=== PATIENT | female | born 1955 | race Two or more races ===

== ENCOUNTER 2023-08-31 23:43 | Inpatient (IN) | payer MEDICAID ==
[~2023-08-31] VITALS: Ht 154.9 cm; Wt 81.8 kg
[2023-09-01] VITALS (9 sets, daily range): BP systolic 113–115; BP diastolic 54–73; PULSE 77–101; RESP 18–19; TEMP 97.8–98.9; O2SAT 94–96
[2023-09-01] MEDS ORDERED: IPRATROPIUM BROM 0.5 MG/2.5ML INH SOL NEB ONE (00:15)
[2023-09-01] MEDS ORDERED: ALBUTEROL MEDNEB 2.5 mg/3ml NEB NEB ONE (00:15)
[2023-09-01 00:46] LABS: Basophils # (auto) 0.1 10 ^3/uL (0-0.2); Eosinophils # (auto) 0.2 10 ^3/uL (0-0.8); Eosinophils % (auto) 1.4 % (0.0-7.0); Neutrophils # (auto) 9.7 10 ^3/uL (1.6-8.6)
[2023-09-01 00:47] LABS: Basophils % (auto) 0.5 % (0.0-2.0); Hematocrit 37.6 % (36.0-46.0); Hemoglobin 11.8 g/dL (12.2-16.2); Mean Corpuscular Hemoglobin 26.9 pg (28.0-32.0); Mean Corpuscular Hgb Conc. 31.5 g/dL (32.0-36.0); Mean Corpuscular Volume 85.2 fL (80.0-100.0); Monocytes # (auto) 1.1 10 ^3/uL (0-1.3); Monocytes % (auto) 9.5 % (0.0-12.0); Neutrophils % (auto) 80.6 % (37.0-80.0); Red Blood Cells 4.41 10^6/uL (4.0-5.20); Red Cell Distribution Width 18.5 % (11.8-14.3)
[2023-09-01] MEDS ORDERED: MORPHINE SULFATE 4 MG/ML SYR/VIAL IV PRN (01:00)
[2023-09-01] MEDS ORDERED: PROMETHAZINE W/CODEINE 5 ML ORAL SYRUP PO ONE (01:00)
[2023-09-01] MEDS ORDERED: AZITHROMYCIN 500MG/ 250ML 250 ML IV ONE (01:00)
[2023-09-01] MEDS ORDERED: methylPREDNISolone SOD SUCC 125 MG/2 ML VL IV ONE (01:00)
[2023-09-01] MEDS ORDERED: ONDANSETRON HCL 4 MG/2 ML VIAL IV ONE (01:00)
[2023-09-01] MEDS ORDERED: ACETAMINOPHEN 325 MG TAB PO ONE (01:00)
[2023-09-01] MEDS ORDERED: ASPirin 81 mg TAB PO ONE (01:00)
[2023-09-01] MEDS ORDERED: ALBUTEROL SULF 2.5 MG/0.5ML(0.5%) NEB SOLN HHN ONE (01:00)
[2023-09-01] MEDS ORDERED: IPRATROPIUM BROM 0.5 MG/2.5ML INH SOL HHN ONE (01:00)
[2023-09-01] MEDS ORDERED: cefTRIAXone 1GM/50ML D5W 50 ML IV ONE (01:00)
[2023-09-01 01:02] LABS: INR 1.06 (0.9-1.15); Partial Thromboplastin Time 33.3 SEC (24.5-34.5); Prothrombin Time 11.1 sec (9.3-11.8)
[2023-09-01 01:05] LABS: Alanine Aminotransferase 10 U/L (7-40); Albumin 4.3 g/dL (3.2-4.8); Alkaline Phosphatase 83 U/L (46-116); Anion Gap 9 (5-15); Aspartate Aminotransferase 14 U/L (13-40); BUN/Creatinine Ratio 13.6 (10.0-20.0); Bilirubin, Total 0.6 mg/dL (0.2-1.0); Blood Urea Nitrogen 9 mg/dL (9-23); Calcium 8.7 mg/dL (8.7-10.4); Carbon Dioxide 24 mmol/L (20-30); Chloride 109 mmol/L (98-107); Glucose 115 mg/dL (74-106); Magnesium 1.9 mg/dL (1.6-2.6); Potassium 3.1 mmol/L (3.5-5.1); Sodium 142 mmol/L (136-145); Total Protein 7.4 g/dL (5.7-8.2)
[2023-09-01] MEDS ORDERED: ALBUTEROL MEDNEB 2.5 mg/3ml NEB ONE (01:15)
[2023-09-01] MEDS ORDERED: POTASSIUM CHL 20 Meq TABLET PO ONE (04:15)
[2023-09-01 05:29] LABS: COVID19 ANTIGEN SOFIA FIA POSITIVE (NEGATIVE); Rapid Influenza A Negative (Negative); Rapid Influenza B Negative (Negative)
[2023-09-01] MEDS ORDERED: REMDESIVIR PER PHARMACY 0 ML IV SCH (05:45)
[2023-09-01] MEDS ORDERED: ACETAMINOPHEN 500 MG TAB PO PRN (05:45)
[2023-09-01] MEDS ORDERED: DOCUSATE SOD 100 MG CAP PO PRN (09:45)
[2023-09-01] MEDS: ASCORBIC ACID 1,000 MG TAB PO SCH (10:27)
[2023-09-01] MEDS: CHOLECALCIFEROL (VITD3) 2,000 UNIT CAP/TAB PO SCH (10:27)
[2023-09-01] MEDS: ZINC SULFATE 220mg CAP or TAB PO SCH (10:27)
[2023-09-01] MEDS: DexAMETHasone SOD PHOS 10MG/1ML VIAL INJ IV SCH (10:27)
[2023-09-01] MEDS ORDERED: REMDESIVIR 200 MG in NS 210ml LOADING DOSE ADULT IV ONE (12:00)
[2023-09-01] MEDS ORDERED: OMEP20TA PO (12:43)
[2023-09-01] MEDS ORDERED: MONT-8 PO (12:43)
[2023-09-01] MEDS ORDERED: FERR-7 PO (12:44)
[2023-09-01] MEDS: SODIUM CHLORIDE 0.9% 1,000 ML IV SCH ×2 (13:37→17:57)
[2023-09-01] MEDS: ONDANSETRON HCL 4 MG/2 ML VIAL IV PRN ×2 (14:38→21:32)
[2023-09-01] MEDS: ENOXAPARIN SOD 40 MG/0.4 ML SYRINGE SC SCH (14:38)
[2023-09-01] MEDS: MORPHINE SULFATE INJ 2 MG/ml SYRG IV PRN ×2 (14:38→21:30)
[2023-09-01] MEDS: BUDESONIDE (INHALATION) 180 MCG IH IN SCH (22:03)
[2023-09-02] VITALS (7 sets, daily range): BP systolic 118–125; BP diastolic 63–79; PULSE 57–87; RESP 16–20; TEMP 97.8–98.3; O2SAT 95–99
[2023-09-02] MEDS: SODIUM CHLORIDE 0.9% 1,000 ML IV SCH ×3 (02:25→19:05)
[2023-09-02 07:33] LABS: Basophils # (auto) 0 10 ^3/uL (0-0.2); Basophils % (auto) 0.1 % (0.0-2.0); Eosinophils # (auto) 0 10 ^3/uL (0-0.8); Hemoglobin 10.9 g/dL (12.2-16.2); Neutrophils # (auto) 11.9 10 ^3/uL (1.6-8.6); Red Cell Distribution Width 18.4 % (11.8-14.3)
[2023-09-02 07:35] LABS: Lymphocytes % (auto) 7.4 % (10.0-50.0); Mean Corpuscular Volume 84.2 fL (80.0-100.0); Monocytes # (auto) 0.8 10 ^3/uL (0-1.3); Monocytes % (auto) 6.2 % (0.0-12.0); Neutrophils % (auto) 86.3 % (37.0-80.0); Red Blood Cells 4.03 10^6/uL (4.0-5.20); White Blood Cell 13.8 10^3/uL (4.4-10.8)
[2023-09-02] MEDS: BUDESONIDE (INHALATION) 180 MCG IH IN SCH ×2 (07:35→22:40)
[2023-09-02] MEDS: ALBUTEROL SULF HFA 90MCG INH 200DOSE IN PRN ×2 (07:35→22:40)
[2023-09-02 07:48] LABS: Albumin 3.7 g/dL (3.2-4.8); Alkaline Phosphatase 67 U/L (46-116); Calcium 8.8 mg/dL (8.5-10.1); Carbon Dioxide 26 mmol/L (20-30); Chloride 110 mmol/L (98-107)
[2023-09-02 07:49] LABS: Anion Gap 7 (5-15); Aspartate Aminotransferase 13 U/L (13-40); Bilirubin, Total 0.4 mg/dL (0.2-1.0); Blood Urea Nitrogen 14 mg/dL (9-23); Glucose 111 mg/dL (74-106); Potassium 4.1 mmol/L (3.5-5.1); Sodium 143 mmol/L (136-145); Total Protein 6.5 g/dL (5.7-8.2)
[2023-09-02 07:51] LABS: Alanine Aminotransferase < 9 U/L (7-40)
[2023-09-02] MEDS: CHOLECALCIFEROL (VITD3) 2,000 UNIT CAP/TAB PO SCH (10:42)
[2023-09-02] MEDS: ENOXAPARIN SOD 40 MG/0.4 ML SYRINGE SC SCH (10:42)
[2023-09-02] MEDS: PANTOPRAZOLE 40 MG/10 ML VIAL INJ IV SCH (10:42)
[2023-09-02] MEDS: ZINC SULFATE 220mg CAP or TAB PO SCH (10:42)
[2023-09-02] MEDS: ASCORBIC ACID 1,000 MG TAB PO SCH (10:42)
[2023-09-02] MEDS: DexAMETHasone SOD PHOS 10MG/1ML VIAL INJ IV SCH (10:42)
[2023-09-02] MEDS: DOXYCYCLINE 100MG/250ML 250 ML IV SCH ×2 (12:29→22:00)
[2023-09-02] MEDS: REMDESIVIR 100mg 100 MG in SODIUM CHL 0.9% 230 ML IV SCH (17:54)
[2023-09-02] MEDS: MORPHINE SULFATE INJ 2 MG/ml SYRG IV PRN (17:55)
[2023-09-02] MEDS: ONDANSETRON HCL 4 MG/2 ML VIAL IV PRN (17:55)
[2023-09-03] VITALS (9 sets, daily range): BP systolic 129–138; BP diastolic 71–86; PULSE 57–89; RESP 16–19; TEMP 97.8–98.6; O2SAT 93–98
[2023-09-03] MEDS: SODIUM CHLORIDE 0.9% 1,000 ML IV SCH ×3 (03:50→20:05)
[2023-09-03] MEDS: MORPHINE SULFATE INJ 2 MG/ml SYRG IV PRN ×3 (04:28→22:47)
[2023-09-03] MEDS: DexAMETHasone SOD PHOS 10MG/1ML VIAL INJ IV SCH (09:13)
[2023-09-03] MEDS: CHOLECALCIFEROL (VITD3) 2,000 UNIT CAP/TAB PO SCH (09:13)
[2023-09-03] MEDS: ASCORBIC ACID 1,000 MG TAB PO SCH (09:13)
[2023-09-03] MEDS: PANTOPRAZOLE 40 MG/10 ML VIAL INJ IV SCH (09:13)
[2023-09-03] MEDS: ZINC SULFATE 220mg CAP or TAB PO SCH (09:13)
[2023-09-03] MEDS: ENOXAPARIN SOD 40 MG/0.4 ML SYRINGE SC SCH (09:14)
[2023-09-03] MEDS: BUDESONIDE (INHALATION) 180 MCG IH IN SCH ×2 (10:05→19:27)
[2023-09-03] MEDS: ALBUTEROL SULF HFA 90MCG INH 200DOSE IN PRN ×2 (10:05→19:27)
[2023-09-03] MEDS: DOXYCYCLINE 100MG/250ML 250 ML IV SCH ×2 (11:23→22:46)
[2023-09-03] MEDS: REMDESIVIR 100mg 100 MG in SODIUM CHL 0.9% 230 ML IV SCH (15:49)
[2023-09-03] MEDS: ONDANSETRON HCL 4 MG/2 ML VIAL IV PRN (22:46)
[2023-09-04] MEDS: SODIUM CHLORIDE 0.9% 1,000 ML IV SCH ×2 (04:42→12:45)
[2023-09-04 05:00] VITALS: BP 136/69; PULSE 66; RESP 18; TEMP 98.6; O2SAT 95
[2023-09-04] MEDS: ONDANSETRON HCL 4 MG/2 ML VIAL IV PRN (05:09)
[2023-09-04] MEDS: MORPHINE SULFATE INJ 2 MG/ml SYRG IV PRN (05:10)
[2023-09-04 08:00] VITALS: BP_SYST 136; BP_SYST 142; BP_DIAS 69; BP_DIAS 90; PULSE 61; PULSE 66; RESP 18; RESP 19; TEMP 97.5; O2SAT 95
[2023-09-04] MEDS: ZINC SULFATE 220mg CAP or TAB PO SCH (08:40)
[2023-09-04] MEDS: ASCORBIC ACID 1,000 MG TAB PO SCH (08:40)
[2023-09-04] MEDS: ENOXAPARIN SOD 40 MG/0.4 ML SYRINGE SC SCH (08:40)
[2023-09-04] MEDS: DexAMETHasone SOD PHOS 10MG/1ML VIAL INJ IV SCH (08:41)
[2023-09-04] MEDS: CHOLECALCIFEROL (VITD3) 2,000 UNIT CAP/TAB PO SCH (08:41)
[2023-09-04] MEDS: PANTOPRAZOLE 40 MG/10 ML VIAL INJ IV SCH (08:41)
[2023-09-04 09:00] VITALS: BP 142/90; PULSE 61; RESP 19; TEMP 97.5; O2SAT 95
[2023-09-04] MEDS: BUDESONIDE (INHALATION) 180 MCG IH IN SCH (09:53)
[2023-09-04] MEDS: ALBUTEROL SULF HFA 90MCG INH 200DOSE IN PRN (09:53)
[2023-09-04 09:54] VITALS: PULSE 65; RESP 18; O2SAT 95
[2023-09-04] MEDS: DOXYCYCLINE 100MG/250ML 250 ML IV SCH (10:54)
[2023-09-04] MEDS ORDERED: DOXY1LIQ18 PO (11:51)
[2023-09-04] MEDS ORDERED: DOXY-448 PO (11:51)
[2023-09-04 12:33] VITALS: BP 142/90; PULSE 61; RESP 19; TEMP 97.5; O2SAT 95
== END 2023-09-04 13:45 | disposition home or self-care (01) | DRG 720 ==
LOC: ER 23:43 → OVERFLOW 09-01 09:53 → CENTRAL 09-01 09:53
PROVIDERS: ADMIT Nurse Practitioner Family; ATTEND Nurse Practitioner Acute Care
PROC: XW033E5 Introduction of Remdesivir Anti-infective into Peripheral Vein, Percutaneous Approach, New Technology Group 5 (ICD-10-PCS; principal; 2023-09-01)
DX: A41.9 Sepsis, unspecified organism (principal); J96.01 Acute respiratory failure with hypoxia; J12.82 Pneumonia due to coronavirus disease 2019; U07.1 COVID-19; D63.8 Anemia in other chronic diseases classified elsewhere; J45.901 Unspecified asthma with (acute) exacerbation; K29.50 Unspecified chronic gastritis without bleeding; K44.9 Diaphragmatic hernia without obstruction or gangrene; E78.5 Hyperlipidemia, unspecified; E66.9 Obesity, unspecified; Z68.34 Body mass index [BMI] 34.0-34.9, adult
CPT/HCPCS: 36415; 71045; 80053; 82306; 82728; 83036; 83605; 83615; 83735; 83880; 84443; 84484; 85025; 85379; 85610; 85730; 86141; 87040; 87426; 87804; 93005; 94640; 96365; 96367; 96375; C9113; G0378; J0696; J1100; J2405; J3490

== ENCOUNTER 2023-11-16 17:22 | Emergency (ER) | payer MEDICAID ==
[~2023-11-16] VITALS: Ht 154.9 cm; Wt 78.5 kg
[~2023-11-16 17:22] MED LIST: DOXY-448 PO; DOXY1LIQ18 PO; FERR-7 PO; MONT-8 PO; OMEP20TA PO
[2023-11-16] MEDS ORDERED: ALBUTEROL SULF 2.5 MG/0.5ML(0.5%) NEB SOLN NEB ONE (19:00)
[2023-11-16] MEDS ORDERED: methylPREDNISolone SOD SUCC 125 MG/2 ML VL IM ONE (19:00)
[2023-11-16] MEDS ORDERED: IPRATROPIUM BROM 0.5 MG/2.5ML INH SOL NEB ONE (19:00)
[2023-11-16] MEDS ORDERED: BENZ200C64 PO (19:51)
[2023-11-16] MEDS ORDERED: AZITTAB PO (19:51)
[2023-11-16] MEDS ORDERED: PRED20TA2 PO (19:51)
[2023-11-16] MEDS ORDERED: ALBU108A5 IN (19:51)
[2023-11-16 20:00] VITALS: BP 132/62; PULSE 94; RESP 18; TEMP 97.8; O2SAT 96
== END 2023-11-16 20:18 | disposition home or self-care (01) ==
LOC: ER 17:22
DX: J45.909 Unspecified asthma, uncomplicated (principal); R07.89 Other chest pain
CPT/HCPCS: 71045; 94640; 96372; 99283; J2930; J7644